=== PATIENT | female | born 1990 | race Caucasian/White ===

== ENCOUNTER 2023-05-14 23:04 | Emergency (ER) | payer BC, SELFPAY ==
[2023-05-14] MEDS ORDERED: Lidocaine 1% PF 5 ML VIAL ONE (23:30)
[2023-05-14] MEDS ORDERED: Bacitracin 1 PK ONE (23:48)
== END 2023-05-14 23:51 | disposition home or self-care (01) ==
LOC: CSHERS 23:04
DX: S01.81XA Laceration without foreign body of other part of head, initial encounter (principal); Z23 Encounter for immunization; W25.XXXA Contact with sharp glass, initial encounter
CPT/HCPCS: 12011; 99282